=== PATIENT | male | born 1995 | race African-American/Black ===

== ENCOUNTER 2020-10-01 15:42 | Emergency (ER) | payer MEDICAID, SELFPAY ==
[2020-10-01 15:51] VITALS: BP 113/83; PULSE 53; RESP 22; TEMP 36.9; O2SAT 97
--- NOTE | 2020-10-01 16:09 | PC.NURSE ---
Per EMS pt was found near container with unknown substance in it. Pt denies taking any drugs today
--- NOTE | 2020-10-01 17:06 | ED.SEIZURE ---
HPI - Seizure General Chief Complaint: Seizure Stated Complaint: seizure Time Seen by Provider: 10/01/20 16:27 Source: patient and RN notes reviewed Mode of arrival: EMS Limitations: no limitations History of Present Illness HPI Narrative: This is a 25 year old male who presents for evaluation of seizures. PAtient and his friend state that he had 2 seizures today. He has history of epilepsy, and he has not taken his keppra in 2 days. He state he ran out of his medication on Friday, and he was unable to get his prescription refilled. His dosage is 2000 mg BID. He is here from out of town and the pharmacy would not fill his prescription. EMS states patient was not postictal on arrival. Patient complained of a headache on arrival but he states his headache has resolved. He suffered abrasions to his left hand and bilateral knees. He states his tetanus is up to date. Related Data Allergies Allergy/AdvReac Type Severity Reaction Status Date / Time latex Allergy Unknown Verified 10/01/20 16:07 Review of Systems Review of Systems: All systems reviewed & are unremarkable except as noted in HPI and below PMFSH Past Medical History Medical History (Updated 10/01/20 @ 18:25 by Rosalie Vidal MD) Epilepsy Surgical History Surgical History (Updated 10/01/20 @ 17:17 by Rosalie Vidal MD) No pertinent past surgical history Social History Social History (Updated 10/01/20 @ 17:17 by Rosalie Vidal MD) Smoking status: Never smoker Exam Const: General: no acute distress and alert Orientation/consciousness: patient oriented x3 Eyes: EOM: EOMs intact bilaterally Resp: Effort & Inspection: normal respiratory effort and no retractions Auscultation: clear to auscultation bilaterally Cardio: Rate: regular rate Rhythm: regular rhythm Heart sounds: no murmurs GI: GI Palp: Yes Soft to palpation, No Tenderness to palpation present (GI) and No Guarding due to palpation present (GI) Auscultation: normal bowel sounds Skin: General skin exam: normal color Other: left hand with abrasion to knuckles and knee Neuro: General: patient oriented x3, moves all extremities and CN's II-XI intact bilaterally Psych: Mental Status: mental status grossly normal Affect: normal affect Course Reevaluation(s) Reevaluation #1: Patient was given his dose of Keppra in ER. He has been at baseline so he will be discharge. He will try to get his prescription filled. Date: 10/01/20 Time: 18:25 Vital Signs Vital signs: Vital Signs Temperature 98.5 F 10/01/20 15:51 Pulse Rate 53 L 10/01/20 15:51 Respiratory Rate 22 H 10/01/20 15:51 Blood Pressure 113/83 10/01/20 15:51 Pulse Oximetry 97 10/01/20 15:51 Temperature 98.5 F 10/01/20 15:51 Pulse Rate 82 10/01/20 18:50 Respiratory Rate 16 10/01/20 18:50 Blood Pressure 127/81 10/01/20 18:50 Pulse Oximetry 98 10/01/20 18:50 Discharge Plan Discharge Clinical Impression: Epileptic seizure Qualifiers: Epilepsy type: unspecified Intractability: not intractable Status epilepticus: without status epilepticus Qualified Code(s): G40.909 - Epilepsy, unspecified, not intractable, without status epilepticus Patient Disposition: Home, Self-Care Condition: Stable Instructions: Antibiotic Form, Epilepsy (ED) Additional Instructions: Please take your medications as prescribe. Try not to miss any doses and try to get proper sleep. Prescriptions: New levetiracetam [Keppra] 1,000 mg tablet 2,000 mg PO BID Qty: 14 RF: 0 Follow-up/Referrals: PHYSICIAN NOT ON STAFF,NONSTAFF [Primary Care Provider] -
[2020-10-01] MEDS: levETIRAcetam 500MG/NACL 100ML 500 MG/100 ML BAG 400 MG IVPB (17:18)
[2020-10-01] MEDS: levETIRAcetam 1000MG/NACL100ML 1,000 MG/100 ML BAG 400 MG IVPB (17:18)
[2020-10-01] MEDS: levETIRAcetam 500 MG TABLET PO (17:39)
[2020-10-01 18:50] VITALS: BP 127/81; PULSE 82; RESP 16; O2SAT 98
== END 2020-10-01 18:52 | disposition home or self-care (01) ==
PROVIDERS: Emergency Provider General Practice
DX: G40.909 Epilepsy, unspecified, not intractable, without status epilepticus (principal)
CPT/HCPCS: 96374; 99284; A9270; J1953; J2405